=== PATIENT | female | born 1975 | race Hispanic/Latino ===

== ENCOUNTER 2022-04-28 13:26 | Emergency (ER) | payer OTHER ==
[~2022-04-28] VITALS: Ht 167.6 cm; Wt 90.7 kg
[2022-04-28] MEDS ORDERED: ACETAMINOPHEN 500 MG TABLET ONE (13:32)
[2022-04-28 14:23] LABS: BASOPHILS % (AUTO) 0.2 % (0.0-5.0); EOSINOPHILS % (AUTO) 0.1 % (0.0-8.0); HEMATOCRIT 42.6 % (36-48); LYMPHOCYTES % (AUTO) 4.7 % (21.0-51.0); MEAN CORPUSCULAR HEMOGLOBIN 29.6 pg (27.0-33.0); MEAN CORPUSCULAR HGB CONC 33.8 g/dL (32.0-36.0); MEAN CORPUSCULAR VOLUME 87.5 fL (79-99); MONOCYTES % (AUTO) 4.6 % (3.0-13.0); NEUTROPHILS % (AUTO) 89.9 % (40.0-77.0); PLATELET COUNT (AUTO) 258 K/uL (130-400); RED BLOOD CELL COUNT(AUTO) 4.87 MIL/uL (4.00-5.50); RED CELL DISTRIBUTION WIDTH 13.5 % (11.0-15.5); WHITE BLOOD COUNT (AUTO) 10.3 K/uL (4.8-10.8)
[2022-04-28] MEDS ORDERED: 0.9%NACL 1000ML 1,000 ML IV SCH (14:30)
[2022-04-28] MEDS ORDERED: ONDANSETRON 4MG INJ IVP ONE (14:30)
[2022-04-28] MEDS ORDERED: MORPHINE 2 MG SYG IVP ONE (14:30)
[2022-04-28] MEDS ORDERED: ACETAMINOPHEN 500 MG TABLET PO ONE (14:30)
[2022-04-28 14:33] LABS: CREATININE 0.8 mg/dL (0.5-1.5); POTASSIUM 3.4 mmol/L (3.5-5.1)
[2022-04-28 14:38] LABS: ALBUMIN 3.3 g/dL (3.5-5.0); TOTAL PROTEIN, SERUM 7.6 g/dL (6.0-8.3)
[2022-04-28 14:45] LABS: APPEARANCE,URINE CLEAR (CLEAR); BILIRUBIN,URINE NEGATIVE (NEGATIVE); COLOR,URINE LIGHT-YELLOW (YELLOW); GLUCOSE, URINE (UA) NEGATIVE (NEGATIVE); KETONES,URINE NEGATIVE (NEGATIVE); LEUKOCYTE ESTERASE ,URINE NEGATIVE Leu/uL (NEGATIVE); NITRATE,URINE NEGATIVE (NEGATIVE); PROTEIN,URINE NEGATIVE (NEGATIVE); UROBILINOGEN,URINE 0.2 mg/dL (0.2-1.0)
[2022-04-28 14:49] LABS: BACTERIA,URINE MOD /HPF (None Seen); MUCUS,URINE RARE LPF (None Seen); SQUAMOUS EPITHELIAL CELL,UR MOD /HPF (0-2)
[2022-04-28] MEDS ORDERED: LEVO-70 PO (15:55)
[2022-04-28] MEDS ORDERED: METR375C2 PO (15:55)
[2022-04-28] MEDS ORDERED: DICY20TA2 PO (15:55)
[2022-04-28] MEDS ORDERED: LEVOFLOXACIN 500 MG TABLET PO SCH (16:00)
[2022-04-28] MEDS ORDERED: METRONIDAZOLE 500 MG TABLET PO SCH (16:00)
[2022-04-28] MEDS ORDERED: LEVOFLOXACIN 500 MG TABLET ONE (16:07)
[2022-04-28] MEDS ORDERED: METRONIDAZOLE 500 MG TABLET ONE (16:07)
[2022-04-28 16:23] VITALS: BP 113/68
== END 2022-04-28 16:28 | disposition home or self-care (01) ==
LOC: EDH 13:26
DX: K57.32 Diverticulitis of large intestine without perforation or abscess without bleeding (principal); E86.0 Dehydration; Z20.822 Contact with and (suspected) exposure to COVID-19; E66.01 Morbid (severe) obesity due to excess calories; Z68.32 Body mass index [BMI] 32.0-32.9, adult
CPT/HCPCS: 99284; 74176; 96374; 87635; 96361; 96375; 80053; 83690; 85025; 87804 ×2; 83605; 81001; 36415; C9803; J7030; J2405

== ENCOUNTER 2023-03-18 18:48 | Emergency (ER) | payer BC ==
[~2023-03-18] VITALS: Ht 162.6 cm; Wt 111.1 kg
[~2023-03-18 18:48] MED LIST: DICY20TA2 PO; LEVO-70 PO; METR375C2 PO
[2023-03-18] MEDS ORDERED: ONDANSETRON 4MG INJ IVP ONE (19:00)
[2023-03-18] MEDS ORDERED: 0.9%NACL 1000ML 1,000 ML IV ONE (19:00)
[2023-03-18 19:19] LABS: BASOPHILS # (AUTO) 0.08 K/uL (0.00-0.20); BASOPHILS % (AUTO) 0.7 % (0.0-5.0); EOSINOPHILS # (AUTO) 0.08 K/uL (0.00-0.70); EOSINOPHILS % (AUTO) 0.7 % (0.0-8.0); HEMATOCRIT 49.3 % (36-48); IMMATURE GRANULOCYTE ABSOLUTE 0.06 K/uL (0-1); LYMPHOCYTES # (AUTO) 0.6 K/uL (1.0-4.8); LYMPHOCYTES % (AUTO) 4.9 % (21.0-51.0); MEAN CORPUSCULAR HEMOGLOBIN 29.7 pg (27.0-33.0); MEAN CORPUSCULAR HGB CONC 33.9 g/dL (32.0-36.0); MEAN CORPUSCULAR VOLUME 87.7 fL (79-99); MONOCYTES # (AUTO) 0.4 K/uL (0.1-1.0); MONOCYTES % (AUTO) 3.6 % (3.0-13.0); NEUTROPHILS # (AUTO) 10.7 K/uL (1.8-7.7); NEUTROPHILS % (AUTO) 89.6 % (40.0-77.0); PLATELET COUNT (AUTO) 195 K/uL (130-400); RED BLOOD CELL COUNT(AUTO) 5.62 MIL/uL (4.00-5.50); RED CELL DISTRIBUTION WIDTH 13.7 % (11.0-15.5)
[2023-03-18 19:29] LABS: SARS-CoV-2, RNA, NAAT NEGATIVE SARS CoV-2 (NEGATIVE)
[2023-03-18] MEDS ORDERED: ACETAMINOPHEN 500 MG TABLET PO ONE (19:30)
[2023-03-18] MEDS ORDERED: ACETAMINOPHEN 500 MG TABLET ONE (19:32)
[2023-03-18 19:35] LABS: INFLUENZA TYPE A Negative For Type A (NEGATIVE); INFLUENZA TYPE B Negative For Type B (NEGATIVE)
[2023-03-18 19:36] LABS: ALBUMIN 3.2 g/dL (3.5-5.0); BILIRUBIN,TOTAL 0.4 mg/dL (0.2-1.0); CREATININE 0.9 mg/dL (0.5-1.5); TOTAL PROTEIN, SERUM 7.9 g/dL (6.0-8.3)
[2023-03-18 19:44] LABS: POTASSIUM 2.8 mmol/L (3.5-5.1)
[2023-03-18] MEDS ORDERED: IOHEXOL 350 MG/ML 100ML INFUS..BTL IV ONE (19:56)
[2023-03-18 21:31] LABS: ADD UA MICROSCOPIC YES; APPEARANCE,URINE CLEAR (CLEAR); BILIRUBIN,URINE NEGATIVE (NEGATIVE); COLOR,URINE LIGHT-YELLOW (YELLOW); GLUCOSE, URINE (UA) NEGATIVE (NEGATIVE); KETONES,URINE NEGATIVE (NEGATIVE); LEUKOCYTE ESTERASE ,URINE NEGATIVE Leu/uL (NEGATIVE); NITRATE,URINE NEGATIVE (NEGATIVE); PH,URINE 6.5 (5.0-8.0); PROTEIN,URINE 20 mg/dL (NEGATIVE); UROBILINOGEN,URINE 0.2 mg/dL (0.2-1.0)
[2023-03-18 21:49] LABS: BACTERIA,URINE FEW /HPF (None Seen); SQUAMOUS EPITHELIAL CELL,UR MANY /HPF (0-2)
[2023-03-18] MEDS ORDERED: POTASSIUM BICARB/CIT AC 25 MEQ TABLET.EFF PO ONE (22:00)
[2023-03-18 22:28] VITALS: BP 136/79; PULSE 100; RESP 18; O2SAT 97
== END 2023-03-18 22:32 | disposition home or self-care (01) ==
LOC: EDH 18:48
DX: K52.9 Noninfective gastroenteritis and colitis, unspecified (principal); E66.01 Morbid (severe) obesity due to excess calories; Z20.822 Contact with and (suspected) exposure to COVID-19; Z68.41 Body mass index [BMI] 40.0-44.9, adult
CPT/HCPCS: 99284; 74177; 96374; 96361; 87635; 80053; 83690; 85025; 87804 ×2; 81001; 36415; C9803; J7030; J2405; Q9967